=== PATIENT | female | born 1960 | race Caucasian/White ===

== ENCOUNTER 2021-03-12 14:14 | Inpatient (IN) | payer MEDICARE, MEDICAID, SELFPAY ==
[2021-03-12] VITALS (37 sets, daily range): BP systolic 126–232; BP diastolic 68–108; PULSE 53–82; RESP 6–24; TEMP 36.3–37; O2SAT 95–99
--- NOTE | 2021-03-12 14:15 | RT.EKG_ITS ---
APPROVED REPORT Exam: Resting ECG Patient Location: E HR:69 bpm ECG Measurements Heart Rate 69 AXIS NJ 173 P 78 QRSd 98 QRS -9 QT 416 T 54 QTc 445 Conclusion Sinus rhythm...normal P axis, V-rate 60- 99 I have reviewed and interpreted ECG and agree with software generated interpretation.
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
--- NOTE | 2021-03-12 15:15 | DI.CT_ITS ---
EXAM: CT BRAIN NECK CTA CLINICAL HISTORY: hypertension, h/o brain aneurysm. TECHNIQUE: Imaging Protocol: Axial CT angiography was performed with multi-slice acquisition and mu lti-planar and/or 3D reconstructions. CONTRAST MATERIAL: Intravenous: Omnipaque 350 Contrast volume:structured data in ml COMPARISON: No exams were available for comparison FINDINGS: CTA Neck W: Aortic arch anatomy: The aortic arch anatomy is conventional. Anterior circulation: There is no significant stenosis at the origin of the great vessels off of the aortic arch. No signi ficant stenosis at the origin of the common carotid arteries. The on the right side there is some pe ripherally calcified plaque at the carotid bifurcation and proximal internal carotid artery with appr oximately 20 percent stenosis. Above this level the right ICA is patent in the neck and skull base. Left common carotid artery exhibits normal luminal diameter. There is mild plaque on the posterior w all of the left carotid bifurcation. The stenosis less than 10 percent at this level and in the and approximately 15 percent in at the origin of the left internal carotid artery. Above this level of t his vessel is nicely patent in the neck and skull base. Posterior circulation: Both vertebral arteries originated conventional fashion off of the subclavian arteries. There is no significant stenosis at their origins nor in the subclavian arteries proximal to the vertebral artery takeoff points. The left vertebral artery performed a 360 degree turn prior to entering the foramen transverse area but without significant stenosis. The vertebral arteries ascend with approximately equal diameters and no evidence of intraluminal thrombus nor dissection. At the skull base the left vertebral artery is dominant. The right vertebral artery is a thinner vessel at this level but also contributes to the formation of the basilar artery. CTA Brain W: Anterior circulation: Both internal carotid arteries are patent in the skull base-carotid canals as well as within the cave rnous sinuses. The supraclinoid aspects of the internal carotid arteries are patent.. Both A1 segme nts are thin but patent. Both anterior cerebral arteries are patent. There is no evidence of aneury sm at the level of the anterior communicating artery. There are bilateral aneurysm clips in the bilateral middle cranial fossa is at the middle cerebral ar lorraine levels and a there is evidence of bilateral temporal bone craniotomies. Both middle cerebral ar teries are patent proximally but their distal aspects are difficult to assess because of the artifact from the clips. No obvious aneurysm is evident. Posterior circulation: Basilar artery is formed at the skull base by both vertebral arteries, the left being dominant. Supe riorly the basilar artery gives off patent bilateral posterior sub of patent bilateral superior cereb ellar arteries and above this level terminates as patent right posterior cerebral artery. Left poste rior cerebral artery is predominantly fed by a posterior communicating artery on the left side of the tpbrwi-na-Naeelk with a twig like contribution from the basilar artery tip. There is no evidence of aneurysm at the tip of the basilar artery. CT BRAIN: There is no evidence of intracranial hemorrhage. Bilateral aneurysm clips are noted in the bilateral middle cranial fossa is middle cerebral artery territories. There are no ring enhancing lesions in the brain. No obvious abnormal meningeal enhancement at nor distal from the bilateral temporal crani otomies. Ventricular size is normal. There is no blood within the ventricular system. IMPRESSION: 1. Bilateral aneurysm clipping at the level the middle cerebral arteries. Is makes evaluation of the middle cerebral arteries somewhat difficult. There are no obvious intracranial aneurysms nor eviden ce of intracranial hemorrhage. No ring enhancing lesions in the brain. 2. Mild less than 20 percent stenosis at the origin of both carotid bifurcation/internal carotid art eries in the neck. No tight stenosis. Both vertebral arteries are patent. Incidentally noted is a small noncalcified peripheral nodule in the right upper lobe seen in the lowe r field of view of this study. Also another small nodule seen in the peripheral aspect of the left u pper lobe. Appropriate follow-up of these incidental lung findings is recommended. RADIATION DOSE DELIVERED: 1,979.89mGy.cm Total DLP DATA REPOSITORY: All CT scans at this facility are submitted to the National Radiology Data Registry (NRDR) Dose Index Registry (DIR) with the [employer] ([employer]). RADIATION OPTIMIZATION: All CT scans at this facility use at least one of these dose optimization te chniques: automated exposure control; mA and/or kV adjustment per patient size (includes targeted exa ms where dose is matched to clinical indication); or iterative reconstruction.
[2021-03-12 15:17] LABS: Abs Immature Grans 0.01 10^3/uL (0.0-0.06); Absolute Basophil Count 0.06 10^3/uL (0.0-0.2); Absolute Eosinophil Count 0.07 10^3/uL (0.0-0.7); Absolute Lymphocyte Count 2.11 10^3/uL (1.2-3.4); Absolute Monocyte Count 0.39 10^3/uL (0.1-0.8); Absolute Neutrophil Count 3.88 10^3/uL (1.2-6.7); Basophils % 0.9; Eosinophils % 1.1; HCT 38.8 % (36.0-46.0); HGB 13.2 g/dL (11.2-15.7); Immature Grans % 0.2; Lymphocytes % 32.4; MCH 28.9 pg (27.0-33.0); MCV 84.9 fL (80-95); Neutrophils % 59.4; Nucleated RBC 0 %; Platelet Count 439 10^3/uL (130-400); RBC 4.57 10^6/uL (3.93-5.22); RDW 12.4 % (11.7-14.6); RDW-SD 38.2 fL; WBC 6.52 10^3/uL (4.4-10.8)
[2021-03-12 15:20] LABS: ALT 28 U/L (14-59); AST 29 U/L (15-37); Albumin 4.4 g/dL (3.4-5.0); Alkaline Phosphatase 93 U/L (46-116); Anion Gap 8.9 mmol/L (3-11); BUN 4 mg/dL (7-18); Bilirubin, Total 0.5 mg/dL (0.2-1.0); CO2 28.1 mmol/L (21.0-32.0); CREATININE 0.7 mg/dL (0.55-1.02); Calcium 9.6 mg/dL (8.5-10.1); Chloride 92 mmol/L (98-107); Glucose 91 mg/dL (74-106); Magnesium 1.4 mg/dL (1.8-2.4); Sodium 129 mmol/L (136-145); Total Protein 7.8 g/dL (6.4-8.2)
[2021-03-12 15:21] LABS: Potassium 4.1 mmol/L (3.5-5.1); Troponin I < 0.05 ng/mL (<0.06)
--- NOTE | 2021-03-12 15:45 | DI.CT_ITS ---
EXAM: CT THORAX CTA CLINICAL HISTORY: palpitations, htn, r/o acute dissection, pe. TECHNIQUE: Imaging Protocol: CT angiography of the chest was performed using pulmonary embolus irwin col. Multi planar reconstructions were performed. CONTRAST MATERIAL: Intravenous: Omnipaque 350 Contrast volume: 100 cc COMPARISON: CT CT BRAIN NECK CTA from 03/12/2021 FINDINGS: CHEST: PULMONARY ARTERIES: Suboptimal bolus timing to determine if there are pulmonary emboli. There is no evidence of pulmonary emboli in the main pulmonary arteries. Distal to this level is difficult to de termine. LUNGS: Mild benign-appearing increased markings in the inferior lingular segment of the left lung.. There are no pleural effusions. MEDIASTINUM: There is no hilar nor mediastinal adenopathy. Visualized thyroid unremarkable.No signifi cant axillary adenopathy. CARDIAC: Heart size is upper normal. There is no pericardial effusion.Caliber of the thoracic aorta is within normal limits. No evidence of aortic dissection. There is no significant shift of the inte rventricular septum. PARTIALLY VISUALIZED UPPERMOST ABDOMEN: No obvious findings OSSEOUS: Scoliosis. Degenerative changes in the spine. No lytic osseous lesions evident.. IMPRESSION: 1. No evidence of aortic dissection nor pericardial effusion..Mild increased markings in the lingular segment of the left lung. No other significant pulmonary findings nor obvious intrathoracic adenopa thy. No pleural effusions. 2. Suboptimal bolus timing for determination of pulmonary emboli. However, there are no intraluminal filling defects within the main pulmonary arteries. Distal to this level is difficult to determine. RADIATION DOSE DELIVERED: 323.24mGy.cm Total DLP DATA REPOSITORY: All CT scans at this facility are submitted to the National Radiology Data Registry (NRDR) Dose Index Registry (DIR) with the [employer] (ACR). RADIATION OPTIMIZATION: All CT scans at this facility use at least one of these dose optimization te chniques: automated exposure control; mA and/or kV adjustment per patient size (includes targeted exa ms where dose is matched to clinical indication); or iterative reconstruction.
[2021-03-12] MEDS: Normal Saline - Diluent 50 ML VIAL IV ×3 (16:22→18:01)
[2021-03-12 16:23] LABS: Sodium, Urine 112 mmol/L
[2021-03-12] MEDS: Labetalol 100 MG/20 ML VIAL 20 MG IVP (17:10)
--- NOTE | 2021-03-12 17:13 | DI.VRAD_ITS ---
PROCEDURE INFORMATION: Exam: CTA Chest With Contrast Exam date and time: 03/12/2021 4:50 PM Age: 60 years old Clinical indication: Other: Palpitations, HTN, R/O acute dissection, pe TECHNIQUE: Imaging protocol: Computed tomographic angiography of the chest with contrast. 3D rendering (Not supervised by radiologist): MIP and/or 3D reconstructed images were created by the technologist. Contrast material: VISIPAQUE 320; Contrast route: INTRAVENOUS (IV); COMPARISON: No relevant prior studies available. FINDINGS: Pulmonary arteries: The bolus timing is suboptimal for exclusion of pulmonary embolism. Aorta: Unremarkable. No aortic aneurysm. No aortic dissection. The liver is diffusely decreased in density. Lungs: Unremarkable. No consolidation. No masses. Pleural spaces: Unremarkable. No pneumothorax. No pleural effusion. Heart: Unremarkable. No cardiomegaly. No pericardial effusion. Lymph nodes: Unremarkable. No enlarged lymph nodes. Bones/joints: Chronic degenerative changes of the spine are present. Soft tissues: Unremarkable. IMPRESSION: 1. No evidence of aortic dissection. 2. Suboptimal bolus timing for evaluation of the pulmonary arteries. No gross evidence of pulmonary embolism. Dictated and Authenticated by: Gregory Benito MD. Ordering:BETO Glaser MD
--- NOTE | 2021-03-12 17:26 | DI.VRAD_ITS ---
PROCEDURE INFORMATION: Exam: CT Angiography Head With Contrast, Arteriography Exam date and time: 03/12/2021 4:22 PM Age: 60 years old Clinical indication: Other: Hypertension, h/o brain aneurysm TECHNIQUE: Imaging protocol: Computed tomography angiography of the head with contrast. Exam focused on the arteries. 3D rendering (Not supervised by radiologist): MIP and/or 3D reconstructed images were created by the technologist. Radiation optimization: All CT scans at this facility use at least one of these dose optimization techniques: automated exposure control; mA and/or kV adjustment per patient size (includes targeted exams where dose is matched to clinical indication); or iterative reconstruction. Contrast material: OMNIPAQUE 350; Contrast route: INTRAVENOUS (IV); COMPARISON: No relevant prior studies available. FINDINGS: ANTERIOR CIRCULATION: Right internal carotid artery: Unremarkable. Intracranial segment is patent with no significant stenosis. No aneurysm. Right middle cerebral artery: Right M1 segment is not well visualized due to hardware artifact from aneurysm clipping. Right anterior cerebral artery: Unremarkable. No occlusion or significant stenosis. No aneurysm. Left internal carotid artery: Nonsignificant atherosclerosis in the left cavernous internal carotid artery. Left middle cerebral artery: Unremarkable. No occlusion or significant stenosis. No aneurysm. Left anterior cerebral artery: Unremarkable. No occlusion or significant stenosis. No aneurysm. POSTERIOR CIRCULATION: Right vertebral artery: Unremarkable. No occlusion or significant stenosis. No aneurysm. Left vertebral artery: Unremarkable. No occlusion or significant stenosis. No aneurysm. Basilar artery: Unremarkable. No occlusion or significant stenosis. No aneurysm. Right posterior cerebral artery: Unremarkable. No occlusion or significant stenosis. No aneurysm. Left posterior cerebral artery: origin of the left posterior cerebral artery. Brain: No definite mass, mass effect, or midline shift. Cerebral ventricles: No ventriculomegaly. Bones/joints: Unremarkable. No acute fracture. Soft tissues: Unremarkable. Other findings: Bilateral aneurysm clipping in the vicinity of the bilateral M1 segments. IMPRESSION: 1. Bilateral aneurysm clipping in the vicinity of the bilateral M1 segments. 2. Right M1 segment is not well visualized due to hardware artifact from aneurysm clipping. PROCEDURE INFORMATION: Exam: CT Head Without Contrast Exam date and time: 03/12/2021 4:22 PM Age: 60 years old Clinical indication: Other: Hypertension, h/o brain aneurysm TECHNIQUE: Imaging protocol: Computed tomography of the head without contrast. COMPARISON: No relevant prior studies available. FINDINGS: Brain: No intracranial hemorrhage is seen. No acute arterial territory stroke is noted. There is nonspecific white matter disease, likely related to chronic ischemic demyelination. The right temporal lobe is not well visualized due to hardware artifact from aneurysm clips. Cerebral ventricles: No ventriculomegaly. Bones/joints: Bilateral craniotomy. Paranasal sinuses: Mucosal thickening in the bilateral ethmoid and maxillary sinuses. Mastoid air cells: Visualized mastoid air cells are well aerated. Vasculature: Bilateral aneurysm clipping. Soft tissues: Unremarkable. IMPRESSION: 1. Bilateral aneurysm clipping. 2. Bilateral craniotomy. 3. No acute finding PROCEDURE INFORMATION: Exam: CT Angiography Neck With Contrast Exam date and time: 03/12/2021 4:22 PM Age: 60 years old Clinical indication: Other: Hypertension, h/o brain aneurysm TECHNIQUE: Imaging protocol: Computed tomography angiography of the neck with contrast. 3D rendering (Not supervised by radiologist): MIP and/or 3D reconstructed images were created by the technologist. Radiation optimization: All CT scans at this facility use at least one of these dose optimization techniques: automated exposure control; mA and/or kV adjustment per patient size (includes targeted exams where dose is matched to clinical indication); or iterative reconstruction. Contrast material: OMNIPAQUE 350; Contrast route: INTRAVENOUS (IV); COMPARISON: No relevant prior studies available. FINDINGS: Right common carotid artery: No stenosis. No dissection or occlusion. Right internal carotid artery: No stenosis of the extracranial segment. No dissection or occlusion. Right external carotid artery: No occlusion or stenosis of the origin. Right vertebral artery: No stenosis. No dissection or occlusion. Left common carotid artery: No stenosis. No dissection or occlusion. Left internal carotid artery: Nonsignificant atherosclerosis in the origin of the left internal carotid artery. Left external carotid artery: No occlusion or stenosis of the origin. Left vertebral artery: Nonsignificant atherosclerosis in the origin of the left vertebral artery. Subclavian arteries: Nonsignificant atherosclerosis in the origin of the left subclavian artery. Brachiocephalic artery: Nonsignificant atherosclerosis in the origin of the right brachiocephalic artery. Aorta: Nonsignificant atherosclerosis in the aortic arch. Bones/joints: No acute fracture. Soft tissues: Normal. No significant soft tissue swelling. Lungs: 4 mm nodule laterally in the left upper lobe (10/10). 3 mm nodule in the left apex (10/17). IMPRESSION: 1. Pulmonary nodules.For patients at low risk (minimal or absent history of smoking and of other known risk factors), no routine follow-up is indicated. For patients at high risk (history of smoking or of other known risk factors), consider optional CT Chest at 12 months. (Reference: Thea) 2. Up to 20% stenosis in the proximal right internal carotid artery. REFERENCES: 1. Thea Guidry, et al. Guidelines for Management of Incidental Pulmonary Nodules Detected on CT Images: From the Fleischner Society 2017. Radiology. 2017;284(1):228-243. 2. NASCET CRITERIA. The degree of internal carotid artery stenosis is based on NASCET criteria. Normal is no stenosis. Mild is less than 50% stenosis. Moderate is 50-69% stenosis. Severe is 70% to 99% stenosis. Total occlusion is no detectable patent lumen. Dictated and Authenticated by: Rosemarie Delgadillo MD. Ordering:BETO Glaser MD
[2021-03-12 17:47] LABS: PTT Activated 25.3 sec (21.0-27.5); Prothrombin Time 10.4 sec (9.3-11.0)
[2021-03-12 17:53] LABS: NT-proBNP 537 pg/mL (<300)
[2021-03-12 17:56] LABS: ALT 29 U/L (14-59); AST 20 U/L (15-37); Albumin 4.6 g/dL (3.4-5.0); Alkaline Phosphatase 99 U/L (46-116); Anion Gap 8.4 mmol/L (3-11); BUN 4 mg/dL (7-18); Bilirubin, Total 0.5 mg/dL (0.2-1.0); CO2 29.6 mmol/L (21.0-32.0); CREATININE 0.7 mg/dL (0.55-1.02); Chloride 92 mmol/L (98-107); Glucose 79 mg/dL (74-106); Potassium 3.8 mmol/L (3.5-5.1); Sodium 130 mmol/L (136-145); Total Protein 8.2 g/dL (6.4-8.2)
[2021-03-12] MEDS: Normal Saline Flush 10 ML SYR IVP ×2 (17:57→18:01)
[2021-03-12] MEDS: Ondansetron 4 MG/2 ML VIAL IVP (18:30)
[2021-03-12] MEDS: MAGNESIUM SULFATE 2 GM/50 ML BAG IVPB (18:31)
[2021-03-12 21:16] LABS: Source Nasal/Nares
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
[2021-03-12 21:48] LABS: Osmolality, Urine 298 mOsm/kg (150-1,150)
[2021-03-12 22:48] LABS: COVID-19 PCR Negative (Negative)
[2021-03-12] MEDS: Labetalol 100 MG TAB PO (22:54)
[2021-03-13] VITALS (7 sets, daily range): BP systolic 92–140; BP diastolic 50–92; PULSE 53–62; RESP 18; TEMP 36.1–36.6; O2SAT 98–99
[2021-03-13 07:47] LABS: Anion Gap 7.6 mmol/L (3-11); BUN 7 mg/dL (7-18); CO2 29.4 mmol/L (21.0-32.0); CREATININE 1.1 mg/dL (0.55-1.02); Calcium 9.5 mg/dL (8.5-10.1); Chloride 97 mmol/L (98-107); Estimated GFR 50.33 (mL/min/1.73m2); Glucose 78 mg/dL (74-106); Magnesium 2.1 mg/dL (1.8-2.4); Potassium 3.9 mmol/L (3.5-5.1); Sodium 134 mmol/L (136-145)
[2021-03-13] MEDS: OXcarbazepine 150 MG TAB 300 MG PO (08:50)
[2021-03-13] MEDS: Pantoprazole 20 MG TABCR PO (08:51)
[2021-03-13] MEDS: Labetalol 100 MG TAB PO (08:51)
[2021-03-13] MEDS: Normal Saline Flush 10 ML SYR IVP (08:51)
[2021-03-13] MEDS: Enalapril 5 MG TAB PO (08:51)
[2021-03-13] MEDS: LORazepam 0.5 MG TAB PO (10:26)
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
--- NOTE | 2021-03-13 13:33 | NUR.NOTE ---
Nursing Note: 1230- I took this patients iv out and patient did a full 180. starting hitting her own leg, yelling, swearing, having an outburst for the entirety of the time I was in the room.
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
[2021-03-13 16:59] LABS: Osmolality Serum 271 mOsm/kg (275-295)
== END 2021-03-13 12:21 | disposition home or self-care (01) | DRG 305 ==
LOC: ER 18:54 → MS 21:52
PROVIDERS: Physician Assistant; Admitting Provider Family Medicine; Emergency Provider Student in an Organized Health Care Education/Training Program; PCP Family Medicine; Visit Provider Family Medicine
DX: I16.0 Hypertensive urgency (principal); E87.1 Hypo-osmolality and hyponatremia; R00.2 Palpitations; R51.9 Headache, unspecified; E83.42 Hypomagnesemia; I69.398 Other sequelae of cerebral infarction; G40.909 Epilepsy, unspecified, not intractable, without status epilepticus; I10 Essential (primary) hypertension; Z20.822 Contact with and (suspected) exposure to COVID-19
CPT/HCPCS: 36415; 70496; 70498; 71275; 80048; 80053; 83935; 87635; 93005; 96365; 96366; 96375; 99222; 99238; 99285; 83735; 83880; 83930; 84300; 84484; 85025; 85379; 85610; 85730; 93010; J2405